=== PATIENT | male | born 1945 | race Caucasian/White ===

== ENCOUNTER → 2019-03-21 | Outpatient (CLI) | payer BC ==
[~2019-03-21] MED LIST: ALBUTEROL 0.083% (NEB) 2.5 MG/3 ML AMP
== END | disposition home or self-care (01) ==
LOC: PUL 10:29
DX: J44.9 Chronic obstructive pulmonary disease, unspecified (principal)
CPT/HCPCS: 94060; 94664; 94726; 94729